=== PATIENT | male | born 1960 | race Caucasian/White ===

== ENCOUNTER 2023-05-25 16:46 | Day surgery (SDC) | payer OTHER, SELFPAY ==
[2023-05-25] VITALS (12 sets, daily range): BP systolic 105–150; BP diastolic 68–82; PULSE 50–103; RESP 12–18; TEMP 35.7–37.3; O2SAT 96–99; BMI 28.3
--- NOTE | 2023-05-25 05:51 | PM.IMHP1 ---
Hospitalist- H&P: HPI History of Present Illness Date Seen: 05/25/23 Chief complaint: direct admit from [place] Narrative: Jacquelyn Rebolledo is a 62 year old relatively healthy male with glaucoma who presents as a direct admit from [place]. He is needing surgical services for cholecystitis. He was diagnosed on CT scan at outside hospital after presenting there with mid-lower sternal abdominal pain that started at about 1pm yesterday and was unrelenting. The patient was still able to eat (although not much) and he stated that it did not change the quality of the pain. He states that it felt like an ache and that it was constant with no radiation. He denies nausea, vomiting, diarrhea at home, but coming to the ED he did vomit once and he felt much better. He states however that he has also received pain medication at OSH, and currently he is pain free. Labs and vital signs stable at OSH, no elevation in LFTs reported. With the pain, it was recommended by surgery that he be transferred here for cholecystectomy prior to discharge home. Review of Systems Status of ROS: Reports: 10 or more systems reviewed and unremarkable except as noted in History and below [facility] Medical History (Updated 05/25/23 @ 06:03 by Monty Ponce MD) Glaucoma ?H40.9 - Unspecified glaucoma (ICD-10) Acute cholecystitis ?K81.0 - Acute cholecystitis (ICD-10) Meds Home Medications and Allergies Home Medication Comments: takes eyedrops for glaucoma, otherwise no prescription medications Allergies Allergy/AdvReac Type Severity Reaction Status Date / Time Penicillins Allergy Unknown Verified 05/25/23 05:53 Exam Narrative: Exam Narrative: GEN: AA, NAD HEENT: atraumatic, normocephalic NECK: supple, no masses, no JVD CVS: S1 S2 RRR, somewhat bradycardic LUNGS: CTA b/l ABD: soft, ND, NT, relatively quiet bowels EXT: no edema NEURO: oriented x 3, no focal deficits PSYCH: somewhat rojelio affect Const: Vital Signs, click to edit/add: Vital Signs - 24 hr 05/25/23 05:28 Pulse Rate [Pulse Oximeter] 57 L Respiratory Rate 16 Blood Pressure [Le ft Arm] 150/79 H Pulse Oximetry 97 Oxygen Delivery Me thod Room Air Documenting provider has reviewed patient's vital signs: yes Hospitalist - H&P: Result Labs Labs: labs reviewed from OSH via fax Assessment and Plan Assessment and plan (1) Acute cholecystitis: Status: Acute (2) Glaucoma: Status: Acute Plan 1. Pain has resolved, but will have prn analgesia available 2. Antiemetics as needed 3. No signs of systemic toxicity, will hold additional abx 4. Surgical consultation for possible inpatient cholecystectomy 5. Uncertain if abdominal US would add any information at this point, will defer to surgery 6. Continue home eye gtt
[2023-05-25] MEDS: 0.9 % SODIUM CHLORIDE 1000 ml 1,000 ML 75 ML IV (06:13)
--- NOTE | 2023-05-25 10:15 | CRLHL7_ITS ---
For Patients: As a result of the Century Cures Act, medical imaging exams and procedure reports are released immediately into your electronic medical record. You may view this report before your referring provider. If you have questions, please contact your health care provider. INDICATION: Cholecystitis COMPARISON: Outside report from CT scan performed 05/25/2023 TECHNIQUE: Real time murcia scale imaging and color Doppler analysis was performed of the right upper quadrant. FINDINGS: The patient`s visualized liver is of upper limits of normal in size and has mildly increased echogenicity. The liver measures 18.5 cm. There is a normal appearance of the hepatic IVC and proximal abdominal aorta. Normal patency of the main portal vein. There is no evidence of ascites. A hyperechoic and shadowing stone is present within the gallbladder fundus measuring 1.9 cm. The gallbladder wall is thickened and edematous and measures 6.7 mm in thickness. The common bile duct is of normal size and measures 4.5 mm in diameter at the level of the ans hepatis. The visualized pancreas is normal. There is no evidence of a stone or hydronephrosis within the right kidney. The right kidney measures 11.2 cm in length. IMPRESSION: Thickened and edematous gallbladder wall measuring 6.7 cm with 1.9 cm stone in the gallbladder fundus consistent with cholecystitis. Mild hepatic steatosis. Dictated by Watson Whaley MD @ 05/25/2023 10:59:33 AM (Electronically Signed)
[2023-05-25 11:41] LABS: Troponin I* 0.02 ng/mL (0.01-0.04)
--- NOTE | 2023-05-25 12:20 | P.GSCN_ITS ---
History of Present Illness Consult details Date Seen: 05/25/23 Consult date: 05/25/23 Narrative: The patient is a 62-year-old male who presented to an outside hospital last evening for severe epigastric pain. He states that the pain began abruptly around 1:00 p.m. while he was at a meeting. He has never had anything like this previously. He tried antacids that did not help. He had vomiting in the ER but otherwise no nausea or vomiting. After he vomited he felt better. He has never had any known gallstone disease. No change in bowel habits. No fevers. No urinary symptoms. No chest pain or shortness of breath. At the outside hospital is found to have inflammation around his gallbladder. White blood cell count was elevated. He was asked to be transferred to our facility because of no surgeon at the outside hospital. Since admission he has felt better. He has never had surgery previously. [facility] Medical History (Updated 05/25/23 @ 06:03 by Monty Ponce MD) Glaucoma ?H40.9 - Unspecified glaucoma (ICD-10) Acute cholecystitis ?K81.0 - Acute cholecystitis (ICD-10) Social History What is your current living situation?: I presently have a place to live Problems where you live: no known problems Problems where you live details: na In the past 12 months, utilities in danger of being shut off: no In the past 12 mos, have been you worried that your food would run out before you had money to buy more?: never true In the past 12 mos, the food you bought just didn't last and you didn't have money to buy more?: never true Smoking Status: Never smoker How often do you have a drink containing alcohol: never AUDIT-C Alcohol total score: 0 Non-prescribed substance use: denies use Caffeine: No How often does anyone, including family, friends and others, physically hurt you : never How often does anyone, including family, friends and others, insult or talk down to you: never How often does anyone, including family, friends and others, threaten you with harm: never How often does anyone, including family, friends and others, scream or curse at you: never service: No Meds Home Medications and Allergies Home Medications Medication Instructions Recorded Confirmed Type netarsudil 0.02 %-latanoprost 1 drp ophthalmic (eye-right) QPM 05/25/23 05/25/23 History 0.005 % eye drops (Rocklatan) Allergies Allergy/AdvReac Type Severity Reaction Status Date / Time Penicillins Allergy Unknown Verified 05/25/23 05:53 Exam Narrative: Exam Narrative: General appearance: Alert, cooperative, and in no distress Eyes: PERRLA, eye lids clear, and sclera white HENT Head: Normocephalic Ears: External ears normal Pulmonary: Breathing nonlabored on room air Cardiovascular Heart: Regular rate Extremities: warm and well perfused Gastrointestinal Abdominal: No scars. No hernias. Mildly tender in the upper abdomen Musculoskeletal: Extremities: Upper: Both upper extremities have normal joint range of motion and intact strength. Lower: Both lower extremities have normal joint range of motion and intact strength. Skin: Normal skin color, texture, and turgor. Neurologic: No focal deficits Psychiatric: Alert, oriented, cooperative, normal affect. Const: Vital Signs, click to edit/add: Vital Signs - 24 hr 05/25/23 05:28 05/25/23 07:00 05/25/23 07:00 Temperature 97.7 F Pulse Rate [Pulse Oximeter] 57 L 103 H 103 H Respiratory Rate 16 16 Blood Pressure [Le ft Arm] 150/79 H 131/79 Pulse Oximetry 97 97 Oxygen Delivery Me thod Room Air Room Air Results Labs Labs: LFTs and lipase from outside hospital within normal limits. Troponin was noted to be 0.16. This was reported as stable on recheck. EKG shows sinus bradycardia. No acute changes. Troponin here was normal. White blood cell count was [address] scan done at the outside hospital report is visible which shows distended gallbladder with mild diffuse thickening and edema and pericholecystic stranding. No biliary ductal dilatation. No other acute changes noted on the CT scan. Ultrasound done here shows FINDINGS: The patient`s visualized liver is of upper limits of normal in size and has mildly increased echogenicity. The liver measures 18.5 cm. There is a normal appearance of the hepatic IVC and proximal abdominal aorta. Normal patency of the main portal vein. There is no evidence of ascites. A hyperechoic and shadowing stone is present within the gallbladder fundus measuring 1.9 cm. The gallbladder wall is thickened and edematous and measures 6.7 mm in thickness. The common bile duct is of normal size and measures 4.5 mm in diameter at the level of the nas hepatis. The visualized pancreas is normal. There is no evidence of a stone or hydronephrosis within the right kidney. The right kidney measures 11.2 cm in length. IMPRESSION: Thickened and edematous gallbladder wall measuring 6.7 cm with 1.9 cm stone in the gallbladder fundus consistent with cholecystitis. Mild hepatic steatosis. Dictated by Watson Whaley MD @ 05/25/2023 10:59:[address] scan - pelvis: report reviewed Abdominal ultrasound report/results: report reviewed and image reviewed Assessment and Plan Assessment and plan (1) Acute cholecystitis: Status: Acute Plan The patient is a 62-year-old male with acute cholecystitis. I explained that the treatment for this is laparoscopic cholecystectomy. We discussed the procedure as well as risks and benefits of surgery which include bleeding, infection, bile leak, conversion to open or injury to other structures, specifically the common bile duct. We also discussed recovery. He acid surgery was absolutely necessary and I stated that since his pain was better if he really wanted to avoid surgery we could consider a trial of antibiotics and NPO to see if his symptoms resolve, however because of his significant gallbladder wall thickening and inflammation I recommended cholecystectomy. He was agreeable to proceed. Of note, troponin was 0.16 at outside hospital. Repeat per report was normal. Troponin was negative here. EKG did not show any acute changes. The patient does not have any chest pain. He has been cleared for surgery.
[2023-05-25] MEDS: ERTAPENEM 1 GM inj IVPB (12:40)
[2023-05-25] MEDS: LACTATED RINGERS 1000 ML 1,000 ML 75 ML IV (12:56)
[2023-05-25] MEDS: BUPIVACAINE 0.25% 30 ML INJECTION (13:50)
--- NOTE | 2023-05-25 14:00 | P.GSOP_ITS ---
Operative Note Pre-op diagnosis: Acute cholecystitis Post-op diagnosis: Same Type of Procedure: Laparoscopic cholecystectomy Indications: The patient is a 62-year-old male who presented with severe epigastric pain yesterday. He was found to have inflammation around his gallbladder. White blood cell count was elevated LFTs were within normal limits. Ultrasound showed no common bile duct dilatation but a large gallstone and gallbladder wall thickening. We discussed options, but because of the significant amount of inflammation I recommended cholecystectomy and he agreed to proceed. Procedure Description: After discussing the risks and benefits of the procedure, the patient signed informed consent.? The operative site was marked and the patient was brought to the operating room and placed on the operating table in supine position.? Care was taken to pad the patient's pressure points.?? The patient was then intubated by anesthesia.?? The operative site was then prepped and draped in the usual sterile fashion.? A time-out was then performed. Entrance to the abdomen was gained via a 5 mm Visiport in the left upper quadrant. The abdomen was insufflated and briefly surveyed for signs of injury. There was none. A 10 mm umbilical port was placed as well as 2 working ports along the right costal margin, all under direct vision. The patient was then placed in reverse Trendelenburg position with the right side up. The gallbladder fundus was grasped and retracted cephalad. A small amount of dissection was needed to free omental adhesions from the gallbladder. The infundibulum was grasped. A combination of hook cautery and blunt dissection was used to carefully dissect out the cystic duct and artery until they could clearly be seen entering the gallbladder without any intervening structures. The gallbladder was markedly inflamed and edematous and so it bled easily, however hemostasis was controlled with cautery and clips along the peritoneal edge. The gallbladder was dissected off the cystic plate to achieve the critical view. Once this was achieved the cystic duct and artery were each clipped with 2 clips proximally and 1 clip distally and transected with the scissors. The gallbladder was then taken off of the liver bed and removed from the abdomen using an Endo- Catch bag. The gallbladder bed was surveyed for hemostasis which appeared excellent. However, because of the inflammation I did place a piece of Surgicel in the gallbladder bed. A small amount of bile which had spilled was suctioned from the abdomen. The ports were then removed and the abdomen desufflated. The umbilical port fascia was closed with 0 Vicryl. The skin was closed with absorbable subcuticular suture. Sterile dressings were applied. Instrument sponge and needle counts were correct at the end of the case. The patient was then woken and transferred to the PACU in stable condition.? The patient tolerated the procedure well. Findings: Markedly edematous gallbladder with large gallstones Anesthesia: GETA Surgeon: Gissell Nova MD Estimated blood loss (mL): 50 Specimen: Gallbladder Condition: stable Disposition: PACU Date of procedure: 05/25/23
--- NOTE | 2023-05-25 14:04 | SUR.OPER ---
DEBRIEF COMPLETED WITH DR. GROSS, BEFORE SHE LEFT THE OR-PROCEDURE AND EBL CONFIRMED, SPECIMEN VERIFIED.
--- NOTE | 2023-05-25 14:12 | W.ANESCHARGE ---
Anesthesia Charges Start Date/Time Anesthesia Start Date: 05/25/23 Anesthesia Start Time: 12:21 Stop Date/Time Anesthesia Stop Date: 05/25/23 Anesthesia Stop Time: 14:26
--- NOTE | 2023-05-25 14:27 | W.ANESCHARGE ---
Anesthesia Charges Start Date/Time Anesthesia Start Date: 05/25/23 Anesthesia Start Time: 12:21 Stop Date/Time Anesthesia Stop Date: 05/25/23 Anesthesia Stop Time: 14:26
== END 2023-05-25 18:50 | disposition home or self-care (01) ==
LOC: SS 16:46 → MEDSURG 16:48
PROVIDERS: Surgery; PCP Family Medicine; Visit Provider Internal Medicine
PROC: 0FT44ZZ Resection of Gallbladder, Percutaneous Endoscopic Approach (ICD-10-PCS; CPT 47562; principal; 2023-05-25 10:40)
DX: K80.12 Calculus of gallbladder with acute and chronic cholecystitis without obstruction (principal)
CPT/HCPCS: 47562; 00790; 36415; 76705; 84484; 88304; A9270; J0665; J1100; J1170; J1335; J2250; J2405; J3010; J7030; J7120

== ENCOUNTER 2023-06-30 09:32 | Outpatient (CLI) | payer OTHER, SELFPAY | END 2023-06-30 09:33 | disposition home or self-care (01) | LOC: NFLDREF 09:33 | PROVIDERS: PCP Family Medicine; Visit Provider Family Medicine | DX: U07.1 COVID-19 (principal) | CPT/HCPCS: 80048 ==

== ENCOUNTER 2024-08-06 14:23 | Emergency (ER) | payer OTHER, SELFPAY ==
[2024-08-06 14:42] VITALS: BP 152/75; PULSE 58; RESP 18; TEMP 36.3; O2SAT 98; BMI 29.5
--- NOTE | 2024-08-06 16:06 | ED_ITS ---
HPI - General Adult General Date Seen: 08/06/24 Chief complaint: GI Bleed Stated complaint: Blood in stool Time Seen by Provider: 08/06/24 15:35 Source: patient Mode of arrival: ambulatory Limitations: no limitations History of Present Illness HPI narrative: Patient is a 63-year-old, generally healthy male, who has noted some bright red blood per rectum yesterday and today. This is been bright red and on the toilet paper. He has not had any black or tarry stools, has not had any blood mixed with stools. He does note that yesterday he had a larger and harder than normal stool that required straining. He has had a little perirectal itching but has not had any perirectal pain. Denies abdominal pain. He is not anticoagulated. He had a colonoscopy roughly 10 years ago and says that he had some diverticulosis but no other significant findings. He has no prior history of GI bleeding, gastroesophageal reflux, gastritis or ulcers. Related Data Home Medications ?Medication ?Instructions ?Recorded ?Confirmed brimonidine 0.2 % eye drops 1 drp ophthalmic (eye-right) BID 05/25/23 05/30/24 Allergies Allergy/AdvReac Type Severity Reaction Status Date / Time Penicillins Allergy Unknown Verified 05/30/24 12:37 Review of Systems Status of ROS: Reports: 6 or more systems reviewed and unremarkable except as noted in History and below [facility] Medical History Left lateral epicondylitis ?M77.12 - Lateral epicondylitis, left elbow (ICD-10) Glaucoma ?H40.9 - Unspecified glaucoma (ICD-10) Acute cholecystitis ?K81.0 - Acute cholecystitis (ICD-10) Surgical History History of cataract extraction ?Z98.49 - Cataract extraction status, unspecified eye (ICD-10) Status post cataract extraction and insertion of intraocular lens of right eye ?Z98.41 - Cataract extraction status, right eye (ICD-10) ?Z96.1 - Presence of intraocular lens (ICD-10) History of laparoscopic cholecystectomy (05/25/23) ?Z90.49 - Acquired absence of other specified parts of digestive tract (ICD- 10) Social History What is your current living situation?: I presently have a place to live Problems where you live: no known problems Problems where you live details: na In the past 12 months, utilities in danger of being shut off: no In the past 12 mos, have been you worried that your food would run out before you had money to buy more?: never true In the past 12 mos, the food you bought just didn't last and you didn't have money to buy more?: never true Smoking Status: Never smoker How often do you have a drink containing alcohol: never AUDIT-C Alcohol total score: 0 Non-prescribed substance use: denies use Caffeine: No How often does anyone, including family, friends and others, physically hurt you : never How often does anyone, including family, friends and others, insult or talk down to you: never How often does anyone, including family, friends and others, threaten you with harm: never How often does anyone, including family, friends and others, scream or curse at you: never service: No Exam Narrative: Exam Narrative: Vital signs reviewed In general, alert, nontoxic elderly male. Head: Normocephalic, atraumatic. Eyes: Sclera clear. Pupils equal and reactive. ENT: Mucous membranes moist. Neck: Supple without adenopathy. Heart: Regular rate and rhythm without murmur. Lungs: Clear. No increased work of breathing, crackles or wheezes. Abdomen: Soft, nontender to palpation. Rectal: no hemorrhoids, fissure, mass. Light brown stool, no visible blood. Extremities: Well perfused, pulses intact. No significant edema. Neurologic: Alert, conversant. Speech fluent, face symmetric. Moves all extremities equally. Skin: Warm, dry well perfused. Affect: Normal. Const: Vital Signs, click to edit/add: Vital Signs - 24 hr 08/06/24 14:42 Temperature 97.3 F L Pulse Rate [Pulse Oximeter] 58 L Respiratory Rate 18 Blood Pressure [Ri ght Upper Arm] 152/75 H Pulse Oximetry 98 Oxygen Delivery Me thod Room Air Course Course ED Course: Presentation is most suggestive of hemorrhoidal bleeding although also consider GI related cancer, ulcer, diverticular bleeding, colitis unlikely in the absence of diarrhea. Fecal occult blood was positive. His CBC shows a normal white blood cell count of 6.7, hemoglobin of 15, normal diff, normal metabolic panel, BUN is 18 creatinine 0.9. Exam is reassuring, vital signs are notable only for mild hypertension. I think it is reasonable to let him go home. Did discuss with him that I think this is probably hemorrhoidal but with his age and lack of recent colonoscopy I would recommend repeat colonoscopy. This can be arranged through primary care. Discussed reasons to return such as significant abdominal pain, increased bleeding, etcetera. Vital Signs Vital signs: Initial Vital Signs Temperature 97.3 F L 08/06/24 14:42 Temperature Source Temporal Artery Scan 08/06/24 14:42 Pulse Rate 58 L 08/06/24 14:42 Respiratory Rate 18 08/06/24 14:42 Blood Pressure 152/75 H 08/06/24 14:42 Blood Pressure Mean 100 08/06/24 14:42 Pulse Oximetry 98 08/06/24 14:42 Oxygen Delivery Method Room Air 08/06/24 14:42 Vital Signs Temperature 97.3 F L 08/06/24 14:42 Pulse Rate 58 L 08/06/24 14:42 Respiratory Rate 18 08/06/24 14:42 Blood Pressure 152/75 H 08/06/24 14:42 Pulse Oximetry 98 08/06/24 14:42 Oxygen Delivery Method Room Air 08/06/24 14:42 Temperature 97.3 F L 08/06/24 14:42 Pulse Rate 58 L 08/06/24 14:42 Respiratory Rate 18 08/06/24 14:42 Blood Pressure 152/75 H 08/06/24 14:42 Pulse Oximetry 98 08/06/24 14:42 Oxygen Delivery Method Room Air 08/06/24 14:42 Medical Decision Making Lab Data Labs: Lab Results 08/06/24 08/06/24 Range/Units 15:51 16:03 WBC 6.77 (4.50-11.00) K/uL RBC 4.46 (4.30-5.90) m/uL Hgb 15.0 (13.5-17.5) gm/dL Hct 43.6 (37.0-53.0) % MCV 98 (80-100) fL MCH 34 (26-34) pg MCHC 34 (32-36) gm/dL RDW Coeff of Oz 12.1 (11.5-15.5) % Plt Count 142 (140-440) K/uL Neut % (Auto) 68.2 (42.0-72.0) % Lymph % (Auto) 22.3 (20-44) % [place] % (Auto) 9.0 (0.0-11.0) % Eos % (Auto) 0.3 (0.0-7.0) % Baso % (Auto) 0.1 (0.0-3.0) % Neut # (Auto) 4.61 (1.7-7.0) K/uL Lymph # (Auto) 1.51 (0.90-2.90) K/uL [place] # (Auto) 0.60 (0.00-0.90) K/UL Eos # (Auto) 0.02 (0.00-0.50) K/uL Baso # (Auto) 0.01 (0.00-0.30) K/uL Abs Immat Gran (auto) 0.01 (0.00-0.30) K/uL Imm/Tot Granulo (auto) 0.1 % Sodium 140 (135-149) mmol/L Potassium 4.0 (3.6-5.1) mmol/L Chloride 107 (96-114) mmol/L Carbon Dioxide 26 (20-32) mmol/L Anion Gap 7 (7-15) mEq/L BUN 18 (7-30) mg/dL Creatinine 0.9 (0.5-1.5) mg/dL Estimated Creat Clear 85.63 Estimated GFR 95 ml/min Glucose 94 (60-115) mg/dL Calcium 9.3 (8.4-10.6) mg/dL Stool Occult Blood Positive (Negative) Discharge Plan Discharge Clinical Impression: BRBPR (bright red blood per rectum) Instructions: Rectal Bleeding (ED) Additional Instructions: Your hemoglobin is normal, as are the rest of your labs. You do have microscopic blood in your stool but I do not see evidence of bright red blood at this time. I suspect that this bleeding may be hemorrhoidal, but I would recommend that you have a colonoscopy to further evaluate. If at any time you develop significant abdominal pain, more significant bleeding, black or tarry stools, lightheadedness, fainting, fevers or other worsening, return to the emergency department for re-evaluation. Otherwise, please follow-up with your primary doctor to arrange for outpatient colonoscopy. Prescriptions: No Action brimonidine 0.2 % drops 1 drp ophthalmic (eye-right) BID Rx Instructions: administer approximately 8 hours apart Follow Up/Referrals: Provider,Not a Local [Primary Care Provider] - Stand Alone Forms: [employer] Info Instructions
[2024-08-06 16:10] LABS: Basophils Absolute Auto 0.01 K/uL (0.00-0.30); Basophils Percent Auto 0.1 % (0.0-3.0); Eosinophils Absolute Auto 0.02 K/uL (0.00-0.50); Eosinophils Percent Auto 0.3 % (0.0-7.0); Hematocrit 43.6 % (37.0-53.0); Immature Granulocytes Abs Auto 0.01 K/uL (0.00-0.30); Immature Granulocytes Pct Auto 0.1 %; Lymphocytes Absolute Auto 1.51 K/uL (0.90-2.90); Lymphocytes Percent Auto 22.3 % (20-44); Mean Corpuscular HGB Conc 34 gm/dL (32-36); Mean Corpuscular Hemoglobin 34 pg (26-34); Mean Corpuscular Volume 98 fL (80-100); Neutrophils Absolute Auto 4.61 K/uL (1.7-7.0); Neutrophils Percent Auto 68.2 % (42.0-72.0); Platelet Count* 142 K/uL (140-440); RDW Coefficient of Variation % 12.1 % (11.5-15.5); Red Blood Count 4.46 m/uL (4.30-5.90); White Blood Count* 6.77 K/uL (4.50-11.00)
[2024-08-06 16:11] LABS: Slide Review Reflex No
[2024-08-06 16:13] LABS: Fecal Occult Blood* Positive (Negative)
[2024-08-06 16:22] LABS: Chloride* 107 mmol/L (96-114); Sodium* 140 mmol/L (135-149)
[2024-08-06 16:25] LABS: Anion Gap 7 mEq/L (7-15); Carbon Dioxide* 26 mmol/L (20-32); Creatinine* 0.9 mg/dL (0.5-1.5); Est. Creatinine Clearance* 85.63; Estimated Glomerular Filt Rate 95 ml/min
[2024-08-06 16:26] LABS: Blood Urea Nitrogen* 18 mg/dL (7-30); Calcium* 9.3 mg/dL (8.4-10.6); Glucose* 94 mg/dL (60-115)
== END 2024-08-06 16:44 | disposition home or self-care (01) ==
PROVIDERS: Emergency Provider Emergency Medicine
DX: K62.5 Hemorrhage of anus and rectum (principal)
CPT/HCPCS: 36415; 80048; 82270; 85025; 99283; 99284

== ENCOUNTER 2024-08-19 12:23 | Outpatient (CLI) | payer OTHER, SELFPAY ==
--- NOTE | 2024-08-19 13:46 | W.ANESCHARGE ---
Anesthesia Charges Start Date/Time Anesthesia Start Date: 08/19/24 Anesthesia Start Time: 13:18 Stop Date/Time Anesthesia Stop Date: 08/19/24 Anesthesia Stop Time: 13:44
--- NOTE | 2024-08-19 13:54 | W.ANESCHARGE ---
Anesthesia Charges Start Date/Time Anesthesia Start Date: 08/19/24 Anesthesia Start Time: 13:18 Stop Date/Time Anesthesia Stop Date: 08/19/24 Anesthesia Stop Time: 13:44
== END 2024-08-19 12:24 | disposition home or self-care (01) ==
LOC: OP CLINIC 12:23
PROVIDERS: PCP Family Medicine; Visit Provider Internal Medicine
DX: Z12.11 Encounter for screening for malignant neoplasm of colon (principal); K57.30 Diverticulosis of large intestine without perforation or abscess without bleeding
CPT/HCPCS: 00811; 00812; 45378; J2704